=== PATIENT | male | born 1970 | race Caucasian/White ===

== ENCOUNTER 2017-07-02 14:34 | Emergency (ER) | payer MEDICAID | END 2017-07-02 16:31 | disposition home or self-care (01) | LOC: D.ER 14:34 | DX: K04.7 Periapical abscess without sinus (principal); K08.89 Other specified disorders of teeth and supporting structures ==

== ENCOUNTER 2017-07-06 09:15 | Emergency (ER) | payer MEDICAID | END 2017-07-06 10:48 | disposition home or self-care (01) | LOC: D.ER 09:15 | DX: K02.9 Dental caries, unspecified (principal); K08.89 Other specified disorders of teeth and supporting structures ==

== ENCOUNTER 2017-11-29 16:47 | Emergency (ER) | payer MEDICAID | END 2017-11-29 18:20 | disposition home or self-care (01) | LOC: D.ER 16:47 | DX: B02.9 Zoster without complications (principal); H57.12 Ocular pain, left eye; K21.9 Gastro-esophageal reflux disease without esophagitis ==

== ENCOUNTER 2018-05-25 15:10 | Emergency (ER) | payer MEDICAID ==
[~2018-05-25] VITALS: Ht 185.4 cm; Wt 93.2 kg
[2018-05-25 15:15] VITALS: Ht 185.4 cm; Wt 93.2 kg
[2018-05-25 15:44] LABS: BASOPHILS 0.5 % (0-2); EOSINOPHILS 3.4 % (0-7); HEMATOCRIT 41.3 % (42.0-54.0); HEMOGLOBIN 14.6 g/dL (13.5-17.5); IMMATURE GRANULOCYTES 0.3 % (0-5); LYMPHOCYTES 18.2 % (15-50); MCH 31.4 pg (26.0-34.0); MCHC 35.4 g/dL (31.0-37.0); MCV 88.8 fL (80.0-100.0); MEAN PLATELET VOLUME 9.7 fL (7.4-10.4); MONOCYTES 5.1 % (2-11); NEUTROPHILS 72.5 % (40-80); PLATELET COUNT 260 10x3/uL (130-400); RBC 4.65 10x6/uL (4.20-6.10); RDW 14.1 % (11.5-14.5); WBC 11.1 10x3/uL (4.8-10.8)
[2018-05-25 15:54] LABS: AMORPHOUS SEDIMENT <1+ /lpf (NONE SEEN); APPEARANCE CLEAR (CLEAR); BILIRUBIN NEGATIVE (NEGATIVE); COLOR DY (YELLOW); GLUCOSE NEGATIVE (NEGATIVE); KETONE NEGATIVE (NEGATIVE); NITRITE NEGATIVE (NEGATIVE); PROTEIN 1+ mg/dL (NEGATIVE); SPECIFIC GRAVITY 1.025 (1.005-1.020); UROBILINOGEN NORMAL (NORMAL)
[2018-05-25 16:01] LABS: ALBUMIN 3.8 g/dL (3.4-5.0); ANION GAP 12.9 mmol/L (8-16); BILIRUBIN - TOTAL 0.26 mg/dL (0.2-1.3); CALCIUM 8.9 mg/dL (8.5-10.1); CARBON DIOXIDE 23.6 mmol/L (21.0-32.0); CREATININE - SERUM 1.4 mg/dL (0.6-1.3); MAGNESIUM - SERUM 1.8 mg/dL (1.8-2.4); POTASSIUM - SERUM 3.5 mmol/L (3.5-5.1); PROTEIN - SERUM 7.7 g/dL (6.4-8.2)
[2018-05-25 18:33] VITALS: BP 146/88
== END 2018-05-25 18:34 | disposition home or self-care (01) ==
LOC: D.ER 15:10
PROVIDERS: Emergency Medicine
DX: R10.9 Unspecified abdominal pain (principal); K21.9 Gastro-esophageal reflux disease without esophagitis

== ENCOUNTER → 2018-10-12 14:25 | Outpatient (CLI) | payer MEDICAID ==
[2018-05-25 15:15] VITALS: BMI 27.1
== END | disposition home or self-care (01) ==
LOC: D.RT 14:25
DX: J44.9 Chronic obstructive pulmonary disease, unspecified (principal); J98.4 Other disorders of lung

== ENCOUNTER 2019-04-05 09:35 | Emergency (ER) | payer MEDICAID ==
[2019-04-05 09:47] VITALS: BMI 26.3
[2019-04-05] MEDS ORDERED: EC-NAPROSYN500 MG PO (11:09)
[2019-04-05] MEDS ORDERED: TESSALON PERLE100 MG PO (11:20)
[2019-04-05 11:48] VITALS: BP 130/73
== END 2019-04-05 11:26 | disposition home or self-care (01) ==
LOC: D.ER 09:35
DX: R91.8 Other nonspecific abnormal finding of lung field (principal); R07.81 Pleurodynia

== ENCOUNTER → 2019-07-01 07:32 | Outpatient (CLI) | payer MEDICAID ==
[~2019-07-01 07:32] MED LIST: EC-NAPROSYN500 MG PO; TESSALON PERLE100 MG PO
[2019-07-01 09:33] LABS: BASOPHILS 0.6 % (0-2); EOSINOPHILS 7.2 % (0-7); HEMATOCRIT 41.3 % (42.0-54.0); HEMOGLOBIN 14.3 g/dL (13.5-17.5); IMMATURE GRANULOCYTES 0.2 % (0-5); LYMPHOCYTES 27.1 % (15-50); MCH 30.5 pg (26.0-34.0); MCHC 34.6 g/dL (31.0-37.0); MCV 88.1 fL (80.0-100.0); MEAN PLATELET VOLUME 9.4 fL (7.4-10.4); MONOCYTES 7.3 % (2-11); NEUTROPHILS 57.6 % (40-80); PLATELET COUNT 253 10x3/uL (130-400); RBC 4.69 10x6/uL (4.20-6.10); RDW 14.9 % (11.5-14.5); WBC 8.7 10x3/uL (4.8-10.8)
== END | disposition home or self-care (01) ==
LOC: D.RAD 06-29 09:30 → D.RT 07:32
PROVIDERS: ATTEND Internal Medicine Pulmonary Disease
DX: J44.9 Chronic obstructive pulmonary disease, unspecified (principal); J98.4 Other disorders of lung

== ENCOUNTER 2019-08-27 09:07 | Emergency (ER) | payer MEDICAID ==
[~2019-08-27] VITALS: Ht 185.4 cm; Wt 97.7 kg
[2019-08-27 09:12] VITALS: Ht 185.4 cm; Wt 97.7 kg
[2019-08-27] MEDS ORDERED: ACETAMINOPHEN500 M1 PO (10:20)
[2019-08-27] MEDS ORDERED: CYCLOBENZAPRINE10 MG PO (10:20)
[2019-08-27] MEDS ORDERED: MEDROL DOSE PACK4 MG PO (10:20)
[2019-08-27 10:44] VITALS: BP 136/72
== END 2019-08-27 10:45 | disposition home or self-care (01) ==
LOC: D.ER 09:07
DX: M77.11 Lateral epicondylitis, right elbow (principal); M79.18 Myalgia, other site; X58.XXXA Exposure to other specified factors, initial encounter; Y93.89 Activity, other specified; Y92.89 Other specified places as the place of occurrence of the external cause

== ENCOUNTER → 2020-04-18 10:37 | Outpatient (CLI) | payer MEDICAID ==
[2019-08-27 09:12] VITALS: BMI 28.4
[~2020-04-18 10:37] MED LIST changes: +ACETAMINOPHEN500 M1 PO; +CYCLOBENZAPRINE10 MG PO; +MEDROL DOSE PACK4 MG PO
== END | disposition home or self-care (01) ==
LOC: D.LAB 10:37
PROVIDERS: ATTEND Internal Medicine Pulmonary Disease
DX: Z11.59 Encounter for screening for other viral diseases (principal)

== ENCOUNTER → 2020-04-19 16:11 | Outpatient (CLI) | payer MEDICAID ==
[2019-08-27 09:12] VITALS: BMI 28.4
== END | disposition home or self-care (01) ==
LOC: D.RT 16:00
PROVIDERS: ATTEND Internal Medicine Pulmonary Disease
DX: J44.9 Chronic obstructive pulmonary disease, unspecified (principal)

== ENCOUNTER → 2020-12-27 11:00 | Outpatient (CLI) | payer MEDICAID ==
[2019-08-27 09:12] VITALS: BMI 28.4
== END | disposition home or self-care (01) ==
LOC: D.RT 11:00
PROVIDERS: ATTEND Internal Medicine Pulmonary Disease
DX: J44.9 Chronic obstructive pulmonary disease, unspecified (principal)

== ENCOUNTER 2021-01-15 12:04 | Day surgery (SDC) | payer MEDICAID ==
[~2021-01-15] VITALS: Ht 185.4 cm; Wt 93.9 kg
--- NOTE | ~2021-01-15 | OP ---
PATIENT NAME: KARLA BOYER MEDICAL RECORD: [id number] :70 LOCATION:D.OPS ADMISSION DATE: SURGEON: BURT FERRER MD DATE OF OPERATION: 01/15/2021 PREOPERATIVE DIAGNOSIS: Symptomatic ventral hernia. POSTOPERATIVE DIAGNOSIS: Symptomatic incarcerated ventral hernia. PROCEDURE: Open repair of symptomatic incarcerated ventral hernia utilizing Ventralex ST hernia mesh, which was a large paimiut and was 8 cm in diameter. This was placed in the subfascial compartment. SURGEON: Burt Ferrer MD DOCK BOSS: None. BLOOD LOSS: Minimal. ANESTHESIA: General. COMPLICATIONS: None. The risks and possible complications and alternatives of the procedure were explained to the patient. He elects to proceed. We specifically discussed that we will have to use mesh in this repair. Initially, he was scheduled for a laparoscopic repair; however, I think it is going to be easier on him and certainly there will be fewer incisions if we just do an open repair. OPERATIVE COURSE: The patient was conveyed to the operating room electively on 01/15/2021. General anesthesia was induced by the anesthesia staff. The abdomen was sterilely prepped and draped. A midline incision was accomplished within the umbilicus. There was incarcerated omentum. Adhesions were taken down and the omentum was freed up. I then excised some of the omentum distal to a 3-0 Vicryl tie. I then excised the hernia sac. I sharply cleaned the overlying connective tissue from around the hernia defect. Some attenuated tissue around the hernia defect was excised as well. I then probed in the peritoneal cavity to ensure that there was going to be a good landing zone for the mesh. The mesh was brought onto the sterile field. It was hydrated. It was inserted through the hernia defect in the proper orientation with the "slick side" toward the bowels. The 2 tags were shortened. They were sutured to the surrounding fascia with 0 Surgidac sutures utilizing 3 of the Surgidac sutures with each tag. I then brought some connective tissue and fascia together over the exposed mesh. This was done with horizontal mattress 2-0 Vicryl. The subdermis was approximated with interrupted 3-0 Vicryls. The skin was approximated with a running intracuticular 3-0 Vicryl. Benzoin and Steri-Strips were applied. The patient was then extubated and conveyed to post-anesthesia care unit where he was in stable condition. He will be dismissed home on [place] and [place]. I will see him in the office in 2 to 3 weeks. TRANSINT:[id number] Voice Confirmation ID: [id number] DOCUMENT ID: [id number] OPERATIVE REPORT [id number] KARLA BOYER ROBERT MD CC: [id number] DICTATION DATE: 01/15/211758 DEPUTY CHIEF EXECUTIVE: 01/16/21 0259 [facility] 01/15/[id number] [id number]
[~2021-01-15 12:04] MED LIST changes: +ALBUTEROL SULF8.5 GM INH; +HYDROCODON-ACE1 EAC7 PO; +MOBIC7.5 MG PO; +OMEPRAZOLE40 MG PO; +VALIUM10 MG PO; +VITAMIN D31250 MCG PO
[2021-01-15 12:33] LABS: CALC OSMOLALITY 278 mosm/kg (275-300); CALCIUM 8.7 mg/dL (8.5-10.1); CARBON DIOXIDE 27.4 mmol/L (21.0-32.0); CHLORIDE - SERUM 105 mmol/L (98-107); CREATININE - SERUM 1.1 mg/dL (0.6-1.3); GLUCOSE 94 mg/dL (74-106); POTASSIUM - SERUM 4.6 mmol/L (3.5-5.1); SODIUM 139 mmol/L (136-145); UREA NITROGEN 15 mg/dL (7-18); eGFR NON AFRICAN AMERICAN 75 mL/min (90-120)
[2021-01-15 12:48] LABS: BASOPHILS 0.5 % (0-2); EOSINOPHILS 7.5 % (0-7); HEMATOCRIT 40.3 % (42.0-54.0); HEMOGLOBIN 12.8 g/dL (13.5-17.5); IMMATURE GRANULOCYTES 0.2 % (0-5); LYMPHOCYTE ABS# 2.18 10x3/uL (1.32-3.57); LYMPHOCYTES 25.9 % (15-50); MCH 28.7 pg (26.0-34.0); MCHC 31.8 g/dL (31.0-37.0); MCV 90.4 fL (80.0-100.0); MEAN PLATELET VOLUME 10.2 fL (7.4-10.4); MONOCYTES 6.5 % (2-11); NEUTROPHILS 59.4 % (40-80); PLATELET COUNT 302 10x3/uL (130-400); RBC 4.46 10x6/uL (4.20-6.10); RDW 15.2 % (11.5-14.5); WBC 8.4 10x3/uL (4.8-10.8)
[2021-01-15 14:00] VITALS: BP 113/60; Ht 185.4 cm; Wt 93.9 kg
--- NOTE | 2021-01-15 17:15 | NUR ---
PT WILL NOT STAY STILL. MOVING AROUND IN BED. PT GRIMACING AND GUARDING ABD. STATES HE IS HURTING BAD AFTER 1.5 OF DILAUDED. CURSING. BP 144/67 HR 67 AND SPO2 94% RA.
--- NOTE | 2021-01-15 17:38 | NUR ---
ANESTHESIA AWARE 2 OF DILAUDED 25 OF DEM AND PHENERGAN. STATED OK TO DC WITH ALL MEDS ON BOARD.
== END 2021-01-15 18:40 | disposition home or self-care (01) ==
LOC: D.OPS 12:04
PROVIDERS: ATTEND Surgery
DX: K43.6 Other and unspecified ventral hernia with obstruction, without gangrene (principal); F17.200 Nicotine dependence, unspecified, uncomplicated; J45.909 Unspecified asthma, uncomplicated; J44.9 Chronic obstructive pulmonary disease, unspecified; K21.00 Gastro-esophageal reflux disease with esophagitis, without bleeding